=== PATIENT | female | born 1935 | race Asian ===

== ENCOUNTER 2019-05-06 16:15 | Emergency (ER) | payer OTHER, MEDICAID ==
[~2019-05-06] VITALS: Ht 162.6 cm; Wt 65.8 kg
[2019-05-06 16:15] VITALS: BP_SYST 184
--- NOTE | 2019-05-06 16:15 | NUR ---
BROUGHT IN BY [facility], PLACED IN BED #1 AND TRIAGED. REPORT GIVEN TO JENIFER
--- NOTE | 2019-05-06 16:17 | NUR ---
Pt was [facility] for mechanical fall at home, c/o lower back pain 02/09. Pt has hx of HTN and high cholesterol, her son is at bedside, stated she did not take her BP medication this morning. Per pt's son, she uses a walker at home. Pt did not hit her head.
[2019-05-06] MEDS ORDERED: MORPHINE 4 MG/ML INJ. SYRINGE IM ONE (16:45)
[2019-05-06] MEDS ORDERED: MORPHINE 4 MG/ML INJ. SYRINGE IVP ONE (17:00)
--- NOTE | 2019-05-06 18:01 | NUR ---
Pt is resting in bed with son at bedside, pain has gone down to 3/10. VSS, will continue to monitor pt.
--- NOTE | 2019-05-06 18:46 | NUR ---
x ray at bedside.
[2019-05-06] MEDS ORDERED: ENALAPRILAT DIHYDRATE 1.25 MG/ML VIAL IVP ONE (19:00)
--- NOTE | 2019-05-06 19:00 | NUR ---
Report was given to AL Sanches.
[2019-05-06 19:01] LABS: BASOPHILS # (AUTO) 0.1 K/uL (0.0-0.2); BASOPHILS % (AUTO) 0.6 % (0.0-2.0); EOSINOPHILS # (AUTO) 0.1 K/uL (0.0-0.4); EOSINOPHILS % (AUTO) 1.7 % (0.0-4.0); HEMATOCRIT 41.4 % (36-48); LYMPHOCYTES # (AUTO) 1.8 K/uL (1.0-5.5); LYMPHOCYTES % (AUTO) 21.3 % (20.5-51.5); MEAN CORPUSCULAR HEMOGLOBIN 31 pg (27-31); MEAN CORPUSCULAR HGB CONC 34 % (32-36); MEAN CORPUSCULAR VOLUME 90 fL (79.0-98.0); MONOCYTES # (AUTO) 0.6 K/uL (0.0-1.0); MONOCYTES % (AUTO) 6.6 % (1.7-9.3); NEUTROPHILS % (AUTO) 69.8 % (40.0-70.0); PLATELET COUNT (AUTO) 220 K/uL (130-430); RED BLOOD CELL COUNT(AUTO) 4.58 MIL/uL (4.2-6.2); RED CELL DISTRIBUTION WIDTH 13.1 % (9.0-15.0); WHITE BLOOD COUNT (AUTO) 8.7 K/uL (4.8-10.8)
[2019-05-06 19:03] LABS: ANION GAP 9 (5-15); CHLORIDE 108 mmol/L (98-107); CREATININE 0.55 mg/dL (0.55-1.30); GLUCOSE 99 mg/dL (70-99); SODIUM SERUM 147 mmol/L (136-145); UREA NITROGEN, BLOOD 33 mg/dL (8-21)
[2019-05-06 19:10] LABS: POTASSIUM 2.9 mmol/L (3.5-5.1)
[2019-05-06 19:13] LABS: TOTAL BILIRUBIN 0.5 mg/dL (0.0-1.0)
[2019-05-06 19:14] LABS: ALANINE AMINOTRANSFERASE 15 U/L (12-78); ALBUMIN 3.2 g/dL (3.4-4.8); ASPARTATE AMINOTRANSFERASE 17 U/L (10-37)
[2019-05-06] MEDS ORDERED: KCL 20 mEq in NS 1000 mL 1,000 ML IV ONE (19:15)
--- NOTE | 2019-05-06 19:25 | NUR ---
Asked Dr. Peguero if he would like Potassium PO due to pts transport to [place] in [address] Peguero "it's okay, just start her on the fluids."
--- NOTE | 2019-05-06 20:00 | NUR ---
Patient to be transferred to [place]. Is being transferred due to higher level of care. Receiving facility has accepting physician and available space. ER physician has signed transfer form. Patient or responsible green party has agreed to transfer and signed form. Patient belongings inventoried and will be sent with patient. Copy of nursing notes, lab reports, EKG, Physicians Orders and X-rays to be sent with patient. Report called to at receiving facility. Receiving physician is Dr. Benson. [facility] ambulance service has been called for transfer. ETA is now.
--- NOTE | 2019-05-06 20:05 | NUR ---
PT went to CT scan via [facility] [employer]. Tolerated well. Will cont. to monitor.
[2019-05-06 20:15] VITALS: BP_SYST 193
--- NOTE | 2019-05-06 20:15 | NUR ---
Pt transfered to [place] via [facility] with [facility]. IV patent. No signs of acute distress.
== END 2019-05-06 20:15 | disposition short-term general hospital (02) ==
LOC: SED 16:15
DX: S22.9XXA Fracture of bony thorax, part unspecified, initial encounter for closed fracture (principal); E87.0 Hyperosmolality and hypernatremia; E87.6 Hypokalemia; E78.5 Hyperlipidemia, unspecified; I10 Essential (primary) hypertension; Z86.79 Personal history of other diseases of the circulatory system; W19.XXXA Unspecified fall, initial encounter; Y93.89 Activity, other specified; Y92.89 Other specified places as the place of occurrence of the external cause; Y99.8 Other external cause status
CPT/HCPCS: 36415; 71045; 72128; 72131; 80053; 85025; 96365; 96375; 99285; J2270; J3480